=== PATIENT | female | born 1945 | race Caucasian/White ===

== ENCOUNTER 2016-09-23 22:26 | Inpatient (IN) | payer MEDICARE ==
[~2016-09-23] VITALS: Ht 177.8 cm; Wt 124.0 kg
--- NOTE | ~2016-09-23 | US77 ---
[facility] A Service of [facility] RADIOLOGY TEXT RESULTS PATIENT: MAGGI EASON LOCATION: [facility] : 43 UNIT #: [id number] AGE: [address]: SIVAN CONCEPCION V SEX: F ORDER DR: [id number] [facility] [address] [facility]. [place], [place] [address] [id number] I MR#: [id number] Acc #: [id number] NAME: MAGGI EASON : 1945 SEX: F STUDY DATE/TIME: 09/30/2016 18:20 UNIT: [facility] PCU ROOM: [facility] STUDY DESCRIPTION: US Kidney Bilateral Complete Attending Physician: Sivan Concepcion M.D. Ordering Physician: Chi Vidal M.D. Primary Care Physician: Primary Care Physician No MEDICAL IMAGING REPORT This report is preliminary unless electronic signature is present EXAM Renal ultrasound 09/30/2016 HISTORY Acute renal failure since 09/24/2016. Abnormal renal function tests. Elevated BUN of 38, elevated creatinine 1.6. Abnormally low GFR 13.6 today. FINDINGS The right kidney measures 11.4 cm while the left kidney measures 11.7 cm in longitudinal dimensions. There is no evidence of hydronephrosis or nephrolithiasis. No cystic or solid mass lesions were seen on either kidney. There is normal renal cortical echogenicity. The bladder was empty for the exam and therefore poorly visualized. IMPRESSION 1. Negative renal ultrasound. 2. The bladder was empty for the exam and therefore poorly visualized. Dictated by... Clay Rodriguez M.D. THIS IS AN ELECTRONICALLY VERIFIED REPORT Clay Rodriguez M.D. at 10/01/2016 2:14 PM ALIYAH/rhonda TD: 10/01/2016 10:25 JOB #: [id number] MEDICAL IMAGING REPORT [facility] A Service [facility] RADIOLOGY TEXT RESULTS PATIENT: MAGGI EASON LOCATION: [facility] 340 : 43 UNIT #: [id number] AGE: [address]: SIVAN CONCEPCION V SEX: F ORDER DR: Page 1 of 1 COPY
--- NOTE | ~2016-09-23 | DS ---
Unit #: [id number] #: [id number] Patient: MAGGI EASON [id number] [address] [place], [place] [address] [id number] I MR#: [id number] NAME: MAGGI EASON ROOM: 340 Age: 71 Sex: F Admission Date: 09/24/2016 : 1945 Discharge Date: 10/02/2016 Attending Physician: [place] Garcia M.D. Primary Care Physician: No Primary Care Physician DISCHARGE SUMMARY PERTINENT HISTORY AND HOSPITAL COURSE The patient is a 71-year-old woman with a past medical history significant for chronic obstructive pulmonary disease and diabetes mellitus who presented to the hospital with symptoms of shortness of breath and swelling over both her legs along with difficulty walking for the past three days. While at the hospital, she was found to be in acute respiratory failure with CO2 retention, CO2 narcosis and hypoxia. She was started on BiPAP. She was given nebulized bronchodilators and IV glucocorticoids. Her breathing improved, her symptoms improved. She began ambulating independently. She received local wound care to the sacral area for sacral decubitus, treated with diarrhea cream. Also during her admission, she was noted to have a urinary tract infection. She was started empirically on IV Rocephin. Followup urine culture demonstrated E. coli resistant to Rocephin, ESBL. The patient was started on Bactrim which cultures were sensitive. She received four days of Bactrim. However, renal function deteriorated and the Bactrim was discontinued. At the same time, the patient was also noted to have hyponatremia thought possibly secondary to diuretics or Lasix which was initially 40 mg twice daily. It was stopped. Her renal function improved and her sodium improved. She is planning to be restarted on Lasix 40 mg once daily with fluid restriction, and recommend followup BMP to monitor her sodium level and renal function. Following resolution of her respiratory failure, the patient was continued on bronchodilators, Combivent four times a day. She refused to use BiPAP at night. However, the patient's breathing is stable and did not have a recurrence of shortness of breath. At discharge, the patient is currently stable, ambulating independently. Labs today - sodium 130, potassium 4.1, BUN 50, creatinine 1.6, glucose 156. During her admission, her diabetes was well controlled on Levemir 20 units subcu twice daily and NovoLog four units subcu with meals. The patient is being discharged to nursing home facility today. DISCHARGE MEDICATIONS 1. Levemir 20 units subcu twice daily. 2. NovoLog insulin 4 units subcu three times a day with meals. 3. Ferrous gluconate 325 mg p.o. twice daily. 4. Uloric 40 mg p.o. daily. 5. Miconazole 2% powder to affected area over sacrum. 6. Urea 10% topical twice daily to sacral decubitus area. 7. DuoNeb inhaled four times a day. 8. Budesonide 0.5 mg nebulizer twice daily. 9. Tylenol 650 mg p.o. q.6 p.r.n. for pain or fever. 10. Lovenox 40 mg subcu every 24 hours. Unit #: [id number] #: [id number] Patient: MAGGI EASON 11. Lasix 40 mg p.o. once daily. 12. Gabapentin 300 mg p.o. t.i.d. 13. Lexapro 5 mg p.o. daily. 14. Januvia 50 mg p.o. daily. DISCHARGE INSTRUCTIONS Patient to be transferred to nursing home facility. Follow up with pulmonary, Dr. Juan, in two to three weeks. BMP in two days. Monitor sodium and renal function. Dictated by... Kevin Godwin/melany TD: 10/03/2016 12:53 JOB #: [id number] DISCHARGE SUMMARY Page 1 of 1 X X DISCHARGE SUMMARY
--- NOTE | ~2016-09-23 | US84 ---
[id number] [facility] [address] [facility] [address]. [place], [place] [address] [id number] I MR#: [id number] Acc #: [id number] NAME: MAGGI EASON : 1945 SEX: F STUDY DATE/TIME: 09/25/2016 20:17 UNIT: C3A PCU ROOM: 340 STUDY DESCRIPTION: US LE Veins Complete Juan Daniel Stdy Attending Physician: [place] Garcia M.D. Ordering Physician: Ed Sascha [place] M.D. Primary Care Physician: No Primary Care Physician MEDICAL IMAGING REPORT This report is preliminary unless electronic signature is present EXAM Bilateral lower extremity venous ultrasound. HISTORY Bilateral lower extremity swelling, chronic for 3 years. FINDINGS Ultrasound examination of lower extremity veins was performed from the groin to the calf bilaterally. Edema in the lower legs limits evaluation, with nonvisualization of left calf veins and nonvisualization of the right anterior tibial vein. The visualized veins are patent and compressible. IMPRESSION 1. No evidence of DVT or SVT in the lower extremities. 2. Soft tissue edema in the calves limits evaluation of the calf veins with nonvisualization of the left calf veins and nonvisualization of the right anterior tibial vein. Dictated by... Randolph Stubbs M.D. THIS IS AN ELECTRONICALLY VERIFIED REPORT Randolph Stubbs M.D. at 09/26/2016 11:04 PM DFL/roman TD: 09/26/2016 06:12 JOB #: [id number] MEDICAL IMAGING REPORT Page 1 of 1 COPY
--- NOTE | ~2016-09-23 | CO ---
Unit #: [id number] #: [id number] Patient: MAGGI EASON [id number] [place] [id number] [facility]. [place], [place] [address] [id number] I MR#: [id number] NAME: MAGGI EASON ROOM: 340 Age: 71 Sex: F Admission Date: 09/24/2016 : 1945 Attending Physician: [place] Garcia M.D. Primary Care Physician: Primary Care Physician No CONSULTATION REPORT HISTORY OF PRESENT ILLNESS Ms. Eason is a 71-year-old female, who was admitted through the HIP Service. Apparently, according to records, she was brought to [facility] by EMS. She apparently fell at home. She was found lying on the floor complaining of back pain and leg numbness, it have been getting worse over the past couple of days and she was unable to walk, said she had fallen 4 times in the last 2 days. Apparently, she initially refused to go to the hospital and then she was transported to [facility]. She tells me that she had just come to [place] and is living with her son. She has no physician here in this area she says. She says she does see a joint sealer and does have COPD and does smoke. She denied any sleep apnea. Upon arrival, her chest x-ray showed cardiomegaly, low lung volumes, possibly some mild interstitial edema. Arterial blood gases revealed a pH of 7.28, pCO2 of 73, pO2 of 62 on 4 L. Follow up on 21/07 revealed pH 7.30, pCO2 70, PO2 of 79 on 40% oxygen. Chemistries were significant for creatinine of 1.6, BUN of 54, glucose of 185, potassium of 5.2, CO2 of 33. BNP of 52. Lactic acid of 1.1. White blood cell count [place] 99512, hematocrit was 31.6, platelet count was normal. We have been asked to see. Little other history is available from the patient. PAST SURGICAL HISTORY According to hospital records, she has had surgery of cholecystectomy and two knee replacements. PAST MEDICAL HISTORY Significant for CHF, COPD, diabetes, hypertension. HOME MEDICATIONS Listed include Lantus, NovoLog, Spiriva, Ventolin, metoprolol, Protonix, Coreg, potassium chloride, gabapentin, Lexapro, Lasix, pravastatin, Dyazide, verapamil, Tessalon Perles, and Januvia. ALLERGIES Latex, codeine, OxyContin, hydrocodone. REVIEW OF SYSTEMS Not really possible, the patient is difficult to talk through BiPAP mask. FAMILY HISTORY Unknown. SOCIAL HISTORY Apparently, living with her son and moved to [place] 2 days ago. She tells me she smokes cigarettes. No alcohol. Unit #: [id number] #: [id number] Patient: MAGGI EASON Apparently, also in the emergency room, she received Rocephin, Kayexalate, and half an amp of glucose IV. PHYSICAL EXAMINATION GENERAL: Morbidly obese, white female, wearing BiPAP mask. VITAL SIGNS: Blood pressure is 152/69, pulse 94, respiratory rate 28, afebrile. HEENT: Normocephalic and atraumatic. Pupils are equal, round, and reactive. Sclerae nonicteric. Nasal passages patent. Posterior pharynx crowded. NECK: Thick, supple. No cervical or supraclavicular lymphadenopathy. LUNGS: Reveal diminished breath sounds. Occasional rhonchi. CARDIAC: Regular rate and rhythm. Could not appreciate murmur, rub, or gallop. ABDOMEN: Nontender. Bowel sounds present. No hepatosplenomegaly. EXTREMITIES: With 2+ edema and erythema on the shins and lower extremities. DIAGNOSTIC STUDIES CARDIOVASCULAR STUDIES: EKG; sinus rhythm with occasional PVCs, right bundle-branch block, inferior infarct, age undetermined. IMAGING STUDIES: Chest x-ray, as noted. LABORATORY RESULTS: As noted and reviewed. IMPRESSION 1. Acute hypoxemic hypercarbic respiratory failure. 2. Acute on chronic respiratory acidosis. 3. Chronic obstructive pulmonary disease. 4. Probable volume excess possibly some mild congestive heart failure. 5. Renal failure, unsure if this is chronic or acute. 6. Diabetes. 7. Hypertension. 8. Morbid obesity. 9. Probable obstructive sleep apnea and/or obesity hypoventilation syndrome. PLAN I have tried to contact family, but there is no answer. We will adjust BiPAP pressures to maintain adequate oxygenation and ventilation. We will treat with inhaled bronchodilators. We will check echocardiogram to evaluate LV function. Provide diuresis. Recheck lab work and arterial blood gases. We will make further recommendations pending completion of H and P. Dictated by... Kevin Adkins/phuong TD: 09/25/2016 00:51 JOB #: [id number] Unit #: [id number] #: [id number] Patient: MAGGI EASON CONSULTATION REPORT Page 1 of 1 X Delroy Juan MD CONSULTATION REPORT
--- NOTE | ~2016-09-23 | CT71 ---
[facility] A Service of [facility] RADIOLOGY TEXT RESULTS PATIENT: MAGGI EASON LOCATION: [facility] 340-01 : 43 UNIT #: [id number] AGE: [address]: SIVAN CONCEPCION V SEX: F ORDER DR: [id number] [facility] [address] [facility]. [place], [place] [address] [id number] I MR#: [id number] Acc #: [id number] NAME: MAGGI EASON : 1945 SEX: F STUDY DATE/TIME: 09/24/2016 17:04 UNIT: [address] ROOM: [facility] STUDY DESCRIPTION: CT Head Wo Contrast Attending Physician: Sivan Concepcion M.D. Ordering Physician: Radha Chua M.D. Primary Care Physician: No Primary Care Physician MEDICAL IMAGING REPORT This report is preliminary unless electronic signature is present EXAM CT head without contrast 09/24/2016. HISTORY 71-year-old female with head pain status post fall yesterday. COMPARISON None. TECHNIQUE Routine unenhanced axial images performed through the brain. This CT exam was performed with one or more of the following radiation dose reduction techniques: Automatic exposure control, adjustment of mA and/or kV according to patient size, and iterative reconstruction. FINDINGS Examination mildly limited by motion artifact. No hemorrhage, acute infarction, mass lesion, or abnormal extraaxial fluid collection. No midline shift or focal mass effect. Ventricular system normal in size configuration. Mild generalized atrophy. Mild chronic small vessel disease. No acute bony abnormality. Visualized paranasal sinuses and mastoid air cells are clear. IMPRESSION 1. Mildly motion limited exam. No acute intracranial abnormality. 2. Mild age-related atrophy and chronic small vessel disease. Dictated by... Valerio Cota M.D. THIS IS AN ELECTRONICALLY VERIFIED REPORT Valerio Cota M.D. at 09/25/2016 2:38 PM JKB/bd [facility] A Service of [facility] RADIOLOGY TEXT RESULTS PATIENT: MAGGI EASON LOCATION: [facility] 340-01 : 43 UNIT #: [id number] AGE: [address]: SIVAN CONCEPCION V SEX: F ORDER DR: TD: 09/25/2016 06:08 JOB #: [id number] MEDICAL IMAGING REPORT Page 1 of 1 COPY
--- NOTE | ~2016-09-23 | BMI ---
[facility] Nutrition Therapy DATE: 09/24/16 Patient: MAGGI EASON Physician: DEJAN Address: [address] [place] [address] DRIVE Room/Bed: [address] [place] [address], Zip: [place] [address] Admit Date: 09/24/16 Date of : 43 Height: 5 10 Weight: 288 130.63 HIGH BMI NOTE: DX: 71 y/o female admitted with hypoglycemia ANTHROPOMETRICS: Ht: 70", Wt: 130.6 kg, BMI: 41 (stage III obese) DIET: No diet order currently in place, pt just admitted today INTERVENTION: Restricted diet, meds/fluids per MD RECOMMENDATIONS: Once medically feasible advance to healthy heart diet to promote a gradual weight loss towards a healthy BMI range. No H&P currently available. Elevated A1C indicates DM- add consistent carb restriction once hypoglycemia resolves. Respectfully, Elizabeth Solis RD, LD Food and Nutritional Services [facility] cc: client file
--- NOTE | ~2016-09-23 | HP ---
Unit #: [id number] #: [id number] Patient: MAGGI EASON [id number] [place], [place] [address] [id number] I MR#: [id number] NAME: MAGGI EASON ROOM: 340 Age: 71 Sex: F Admission Date: 09/24/2016 : 1945 Attending Physician: Radha Chua M.D. Primary Care Physician: No Primary Care Physician HISTORY AND PHYSICAL HISTORY OF PRESENT ILLNESS The patient is a 71-year-old woman with a past medical history of CHF, COPD and diabetes mellitus who presents with symptoms of shortness of breath, and increased swelling over legs and gait difficulty over the past three days. History from ER listed. Patient unable to provide history due to lethargy. PAST MEDICAL HISTORY CHF. SOCIAL HISTORY Nonsmoker. Does not drink alcohol. ALLERGIES No known drug allergies. REVIEW OF SYSTEMS History per HPI. Patient unable to provide the review of system history due to lethargy. HOME MEDICATIONS Gabapentin 300 mg p.o. t.i.d.; Lexapro 5 mg p.o. daily; Lasix 40 mg p.o. b.i.d.; Pravastatin 40 mg at bedtime; Dyazide 1 tablet daily; Verapamil 80 mg 3 times a day; Tessalon Perles 100 mg twice daily; Januvia 50 mg daily; Lantus 40 units subcu twice daily; NovoLog 42 units subcu 3 times daily; Ventolin one puff daily; metoprolol 25 mg twice daily; Protonix 40 mg daily; Coreg 3.125 mg p.o. twice daily; potassium chloride 20 mEq p.o. daily. PHYSICAL EXAMINATION VITAL SIGNS: Temperature 97.8, blood pressure 152/69, heart rate 90 per minute. GENERAL: The patient is morbidly obese, lethargic. HEENT: Oropharynx clear. NECK: Trachea midline, supple, no adenopathy. CARDIAC: Regular rate and rhythm LUNGS: Bilateral air entry, scattered rhonchi. EXTREMITIES: Positive for dependent edema. No cyanosis. SKIN: Positive for decubitus ulcer over sacrum. DIAGNOSTIC STUDIES LABORATORY STUDIES: Sodium 137, potassium 5.2, BUN 54, creatinine 1.6, initial blood glucose 45, improved to 185 after starting D5 normal. Urinalysis positive for WBC and positive for leukocyte esterase. ABG - pH Unit #: [id number] #: [id number] Patient: MAGGI EASON 7.28, pCO2 73, O2 sat 88%, ASSESSMENT AND PLAN 1. Acute exacerbation of chronic obstructive pulmonary disease with CO2 narcosis, CO2 retention and hypoxia with respiratory failure. Plan is to start patient on BiPAP with followup repeat ABG. Order a pulmonary consultation. Order azithromycin. 2. Urinary tract infection. Plan is to order Rocephin. Followup urine culture. 3. Decubitus ulcer. Plan is to order wound care. 4. Diabetes mellitus with hypoglycemia. Plan is to continue D5 normal saline. Monitor blood glucose. Reduce dose of Lantus due to initial hypoglycemia over sliding scale insulin coverage. Dictated by Kevin Godwin TD: 09/24/2016 10:19 JOB #: [id number] HISTORY AND PHYSICAL Page 1 of 1 X X HISTORY AND PHYSICAL
--- NOTE | ~2016-09-23 | CO ---
Unit #: [id number] #: [id number] Patient: EVELYNE EASON [id number] [address] [place], [place] [address] [id number] I MR#: [id number] NAME: EVELYNE EASON ROOM: 340 Age: 71 Sex: F Admission Date: 09/24/2016 : 1945 Attending Physician: [place] Garcia M.D. Primary Care Physician: No Primary Care Physician Consultation Date: 09/30/2016 CONSULTATION REPORT REASON FOR CONSULT Renal insufficiency. Thank you for asking me to see this patient in consultation. Ms. Evelyne Eason, who is a 71-year-old female who just recently moved here prior to her presentation on 09/24/16 where she came in with increased swelling, weakness, falling at home a few times, noted upon presentation to have a creatinine of 1.6 on 09/23. It did improve down to 1.1 on 09/26. It was repeated yesterday but creatinine was up to 1.5 and up to 1.6 today. Also noted to have sodium down to 128. Because of this, I was asked to see the patient. Since admission, the patient was noted to have a decubitus ulcer, had questionable cellulitis of the lower extremities and an E. coli ESBL UTI and was placed on Bactrim and has been on Bactrim since the . The patient was supposed to go to rehab although never did. She states she has never had any problems with her kidneys that she knows of. She does state two Aleve a day prior to presentation but none since here. PAST MEDICAL HISTORY 1. History of diabetes mellitus. 2. History of diastolic congestive heart failure. 3. History of COPD, status post knee surgery. 4. Status post cholecystectomy. SOCIAL HISTORY She is a previous smoker, none in the last four years. Again, just moved to [place]. She denies any alcohol abuse. ALLERGIES Codeine, oxycodone, hydrocodone and latex. FAMILY HISTORY Noncontributory. REVIEW OF SYSTEMS She states the shortness of breath is improved although still with some exertion. She denies any severe headaches, dizziness, visual problems, sinus problems. No hemoptysis. No neck pain or neck stiffness. No chest pain or chest heaviness or palpitations. No severe abdominal pain. No nausea, vomiting, diarrhea. She still has a Neal catheter in. She has some intermittent swelling but she states it is better. She denies any recent seizures or strokes. Unit #: [id number] #: [id number] Patient: EVELYNE EASON PHYSICAL EXAMINATION GENERAL: She is alert and oriented. VITAL SIGNS: Temperature is 99.4, pulse 88-106, blood pressure 110-154/40s-80s. HEENT: She is normocephalic, atraumatic. Pupils are equal, round, reactive to light. Extraocular muscles are intact. Hearing appears to be normal. Her mouth is clear. No erythema, no exudates. NECK: Supple, no adenopathy. CARDIAC: She appears to have a regular rhythm without a rub. Maybe a 1 to 2/6 systolic ejection murmur. LUNGS: Decreased breath sounds at the bases only. She has a few expiratory wheezes, no rales or rhonchi noted. She is obese. Bowel sounds are nontender, soft. EXTREMITIES: Her lower legs are dressed. They are large although skin is wrinkling like she had good diuresis. NEURO: Appears to be grossly intact. : Neal catheter is in place. DIAGNOSTIC STUDIES LABORATORY: Laboratory today shows sodium of 128, potassium 3.7, chloride is 86, bicarb is 33, BUN of 38, creatinine 1.6 with a glucose of 153, calcium is 8.9, hemoglobin is 8.5, white count 8400, platelets 293,000. Her T saturation upon admission was 6. She was started on oral iron. Her UA on 09/23 showed specific gravity 1.02, no protein, 0-2 RBCs, 5-10 WBCs, 2+ bacteria and, again, the ESBL E. coli. CARDIOVASCULAR: She had an echo here that showed an EF of 55%. She had a negative lower extremity Doppler. Negative CT of the head. Initial chest x-ray showed some potential mild failure. MEDICATIONS She is on: 1. Insulin. 2. Lovenox. 3. Iron. 4. Inhalers. 5. She was on Bactrim, one p.o. b.i.d. which was stopped today. 6. She was also continued on Lasix 40 mg IV b.i.d. which was DC'd today as well. ASSESSMENT AND PLAN 1. Acute renal insufficiency: Again, patient had acute renal insufficiency when she came in. Creatinine did improve down to 1.1 and it is back up again. Certainly, her initial urinalysis showed no active urinary sediment with no hematuria or proteinuria. Her worsening creatinine again now may be related to diuresis. She has been on the Lasix IV twice a day. Also, on top of that, could be related to the Bactrim versus other. Would like to check a repeat urinalysis with culture and sensitivity, check urine eosinophils without acute interstitial nephritis, check random urine sodium as well as check a renal ultrasound. Agree with stopping her Lasix and Bactrim for now. Will check a full set of electrolytes in the morning including an ALBA. Depending on what all this shows, seeing what renal function does, depending on what further workup and treatment. 2. Hyponatremia: Patient with low sodium. Unsure of the exact etiology. It could just be from overdiuresis versus other. Will Unit #: [id number] #: [id number] Patient: EVELYNE EASON check a cortisol level and a TSH in the morning, check a urine osmolality as well as again repeat urine sodium and also check a uric acid in a.m. Certainly she could have an SIADH related to her lungs versus other. 3. ESBL UTI, treated with Bactrim: This has been DC'd now. Will repeat culture. 4. COPD, questionable obstructive sleep apnea. 5. Diabetes mellitus. Dictated by.Desirae Vidal M.D. FRITZ/melany TD: 10/01/2016 11:20 JOB #: [id number] CONSULTATION REPORT Page 1 of 1 X Beth Vidal MD X CONSULTATION REPORT
--- NOTE | ~2016-09-23 | DS ---
Unit #: [id number] #: [id number] Patient: MAGGI EASON [id number] [address] [place], [place] [address] [id number] I MR#: [id number] NAME: MAGGI EASON ROOM: 340 Age: 71 Sex: F Admission Date: 09/24/2016 : 1945 Discharge Date: Attending Physician: Hugo Garcia DISCHARGE SUMMARY PERTINENT HISTORY AND HOSPITAL COURSE The patient is a 71-year-old woman with a past medical history of CHF, COPD, and diabetes mellitus, who presented to the hospital with symptoms of shortness of breath and swelling over legs along with difficulty walking over the past 3 days. While at the hospital, she was found to be in acute respiratory failure with CO2 retention, CO2 narcosis, and hypoxia. She was started on BiPAP. She was given nebulized bronchodilators and IV glucocorticoids. Her breathing improved. Following which, her symptoms improved. Also, during her admission, the patient was started on Rocephin for urinary tract infection. Urine cultures grew back E. coli with extended-spectrum beta-lactamase; resistant to ceftriaxone. Her antibiotic was changed to Bactrim. She remained afebrile and she will be continued on Bactrim for another 4 days. Also, during her admission, she was noted to have sacral decubitus, which was managed by wound care and Desitin cream. The patient also presented with hypoglycemia. Her insulin dosage was reduced, and following which, she no longer had episodes of hypoglycemia. The patient is being planned to be discharged to intermediate facility for continued rehabilitation. DISCHARGE MEDICATIONS Include DuoNeb q.i.d. and as needed; Asmanex one inhalation b.i.d.; Lovenox 40 mg subcutaneously once daily; gabapentin 100 mg p.o. t.i.d.; Lexapro 5 mg daily; Januvia 50 mg daily; metoprolol succinate sustained release 25 mg p.o. once daily; furosemide 40 mg p.o. b.i.d.; urea 10% topical cream to apply to affected area; pravastatin 40 mg p.o. at bedtime; Protonix 40 mg p.o. daily; potassium chloride 10 mEq p.o. daily; Levemir insulin 10 units subcutaneously b.i.d.; low-dose NovoLog sliding scale insulin coverage before meals; ferrous sulfate 325 mg p.o. b.i.d.; Desenex topical powder b.i.d.; Bactrim 800/160 mg tab one p.o. b.i.d. for 4 days. DISCHARGE INSTRUCTIONS The patient is to be transferred to intermediate facility for rehabilitation. Discharge followup with lab asst, Dr. German Juan for pulmonary function tests. Recommend followup with lab asst in 2 to 3 weeks. Dictated by... Hugo More for Felix Bernard M.D. AM/phuong Unit #: [id number] #: [id number] Patient: MAGGI EASON TD: 09/30/2016 02:13 JOB #: [id number] DISCHARGE SUMMARY Page 1 of 1 X X DISCHARGE SUMMARY
--- NOTE | ~2016-09-23 | CR72 ---
[facility]. [facility] A Service of [facility] RADIOLOGY TEXT RESULTS PATIENT: MAGGI EASON LOCATION: [facility] 340-01 : 43 UNIT #: [id number] AGE: [address]: JEREMY CONCEPCIONUJ V SEX: F ORDER DR: [id number] [place] [id number] I MR#: [id number] Acc #: [id number] NAME: MAGGI EASON : 1945 SEX: F STUDY DATE/TIME: 09/23/2016 23:28 UNIT: SEDOF ROOM: [facility] STUDY DESCRIPTION: CR Chest Single View Portable Attending Physician: Radha Chua M.D. Ordering Physician: Santy Delong M.D. Primary Care Physician: No Primary Care Physician MEDICAL IMAGING REPORT This report is preliminary unless electronic signature is present. EXAM Portable chest. INDICATIONS Shortness of air after a fall today. PROCEDURE Frontal view of the chest. COMPARISON None. FINDINGS Cardiomegaly and moderate central pulmonary vascular prominence. No dense consolidation or pneumothorax. IMPRESSION Cardiomegaly and moderate central vascular prominence. No dense consolidation. Dictated by... Tamir Tripp M.D. THIS IS AN ELECTRONICALLY VERIFIED REPORT Tamir Tripp M.D. at 09/24/2016 9:53 PM EED/roman TD: 09/24/2016 13:29 JOB #: [id number] MEDICAL IMAGING REPORT Page 1 of 1
--- NOTE | ~2016-09-23 | CT98 ---
[facility] A Service of [facility] RADIOLOGY TEXT RESULTS PATIENT: MAGGI EASON LOCATION: [facility] : 43 UNIT #: [id number] AGE: [address]: SIVAN CONCEPCION V SEX: F ORDER DR: [id number] [facility] [address] [facility] [place], [place] [address] [id number] MR#: [id number] Acc #: [id number] NAME: MAGGI EASON : 1945 SEX: F STUDY DATE/TIME: 09/24/2016 17:07 [facility] ROOM: [facility] STUDY DESCRIPTION: CT Lumbar Spine Wo Cont Attending Physician: Sivan Concepcion M.D. Ordering Physician: Radha Chua M.D. Primary Care Physician: Primary Care Physician No MEDICAL IMAGING REPORT This report is preliminary unless electronic signature is present EXAM CT lumbar spine without contrast INDICATION Lower back pain for the past 2 days after a fall yesterday. Large decubitus ulcer on the buttock. PROCEDURE Unenhanced CT of the lumbar spine. This CT exam was performed with one or more of the following radiation dose reduction techniques: automatic exposure control, adjustment of mA and/or kV according to patient size, and iterative reconstruction. COMPARISON None FINDINGS Lumbar bodies maintain normal alignment. There is megt-mr-sfupxaek multilevel degenerative change. Kyphoplasty changes at L1. There is mild age indeterminate but probably chronic, superior endplate compression at L4. Multilevel degenerative facet change. No aggressive appearing bone lesion. There is significant central canal narrowing at L3-L4 related to circumferential disc osteophyte and facet change. There is also significant central canal narrowing at L4-L5 related to circumferential disc osteophyte and facet change. There is severe bilateral neural foraminal narrowing at L4-L5. No abnormal paravertebral mass. 3.3 cm benign left adrenal adenoma. Posterior opacities in both included lung bases nonspecific, probably atelectasis. [facility] A Service of [facility] RADIOLOGY TEXT RESULTS PATIENT: MAGGI EASON LOCATION: [facility] 340-01 : 43 UNIT #: [id number] AGE: [address]: SIVAN CONCEPCION V SEX: F ORDER DR: IMPRESSION 1. No definite acute findings. 2. Mild superior endplate compression at L4 is age indeterminate but probably chronic. 3. Multilevel degenerative disc disease and facet arthrosis with significant central canal narrowing at L3-L4 and L4-L5 as well as significant bilateral neural foraminal narrowing at L4-L5. 4. Other findings are detailed above. Dictated by... Tamir Tripp M.D. THIS IS AN ELECTRONICALLY VERIFIED REPORT Tamir Tripp M.D. at 09/25/2016 10:00 PM Fernanda TD: 09/25/2016 08:33 JOB #: [id number] MEDICAL IMAGING REPORT Page 1 of 1 COPY
[2016-09-23 22:49] LABS: BASOPHIL# 0.1 X10e3 (0-0.3); BASOPHIL% 0.7 % (0-2.5); EOSINOPHIL# 0.2 X10e3 (0-0.7); EOSINOPHIL% 2.3 % (0.0-7.0); HEMATOCRIT 29.4 % (35.0-45.0); HEMOGLOBIN 9.6 gm/dL (12.0-16.0); LYMPHOCYTE# 1.2 X10e3 (1.0-3.5); LYMPHOCYTE% 11.5 % (17.0-45.0); MEAN CELL VOLUME 86.5 FL (83-96); MEAN CORPUSCULAR HEMOGLOBIN 28.4 PG (28-34); MEAN CORPUSCULAR HGB CONC 32.8 g/dL (30-36); MEAN PLATELET VOLUME 6.7 FL (6.5-11.5); MONOCYTE# 0.8 X10e3 (0-1.0); MONOCYTE% 7.4 % (3.0-12.0); NEUTROPHIL% 78.1 % (40-75); PLATELET COUNT 297 X10e3 (140-420); RED CELL DISTRIBUTION WIDTH 20.6 % (11.0-15.5); WHITE BLOOD COUNT 10.2 X10e3 (4.0-10.5)
[2016-09-23 22:54] LABS: DIFF IND NO
[2016-09-23] MEDS ORDERED: INHALER (22:56)
[2016-09-23] MEDS ORDERED: INSULIN (22:56)
[2016-09-23] MEDS ORDERED: WATER PILL (22:56)
[2016-09-23 23:09] LABS: ALBUMIN SERUM 3.6 g/dL (3.5-5.0); ALKALINE PHOSPHATASE 98 U/L (32-92); ALT (SGPT) 25 U/L (10-40); AST (SGOT) 19 U/L (10-42); BILIRUBIN,TOTAL 0.5 mg/dL (0.2-2.0); BLOOD UREA NITROGEN 58 mg/dL (9-23); BUN/CREATININE RATIO 36.25; CALCIUM SERUM 8.9 mg/dL (8.4-10.2); CARBON DIOXIDE 32 mmol/L (22-31); CHLORIDE 95 mmol/L (100-111); CREATININE SERUM 1.6 mg/dL (0.6-1.4); GLOM FILT RATE Estimated 31.6 mL/min (>60); LIPASE 28 U/L (22-51); POTASSIUM 5.4 mmol/L (3.5-5.1); PROTEIN TOTAL SERUM 7.6 g/dL (6.0-8.3); SODIUM 134 mmol/L (135-145)
[2016-09-23 23:10] LABS: BILIRUBIN, DIRECT <0.1 mg/dL (0.0-0.2); BILIRUBIN,INDIRECT 0.4 mg/dL (0.0-0.9); GLUCOSE FASTING 45 mg/dL (70-110)
[2016-09-23] MEDS ORDERED: LANTUS100 U/ML SUBQ (23:43)
[2016-09-23] MEDS ORDERED: NOVOLOG100 UNIT/1 SUBQ (23:44)
[2016-09-23] MEDS ORDERED: SPIRIVA18 MCG (23:44)
[2016-09-23] MEDS ORDERED: ALBUTEROL17 GM INH (23:45)
[2016-09-23] MEDS ORDERED: METOPROLOL SUCC25 MG PO (23:45)
[2016-09-23] MEDS ORDERED: PANTOPRAZOLE SO40 MG PO (23:45)
[2016-09-23] MEDS ORDERED: COREG3.125 MG PO (23:45)
[2016-09-23] MEDS ORDERED: POTASSIUM CHLO20 ME1 PO (23:46)
[2016-09-23] MEDS ORDERED: GABAPENTIN300 M2 PO (23:46)
[2016-09-23] MEDS ORDERED: LASIX PO (23:47)
[2016-09-23] MEDS ORDERED: LEXAPRO5 MG PO (23:47)
[2016-09-23] MEDS ORDERED: PRAVASTATIN SOD40 MG PO (23:47)
[2016-09-23] MEDS ORDERED: VERAPAMIL HCL80 MG PO (23:48)
[2016-09-23] MEDS ORDERED: DYAZIDE 371 CAP 37.5 PO (23:48)
[2016-09-23] MEDS ORDERED: TESSALON PERLE100 M1 PO (23:49)
[2016-09-23] MEDS ORDERED: JANUVIA50 MG PO (23:49)
[2016-09-24 01:32] LABS: URINE SOURCE CLEAN CATCH
[2016-09-24 01:34] LABS: URINE APPEARANCE CLEAR; URINE BILIRUBIN NEG (NEG); URINE BLOOD NEG (NEG); URINE COLOR YELLOW; URINE GLUCOSE NEG (NORM); URINE KETONE NEG (NEG); URINE LEUKOCYTE ESTERASE 1+ (NEG); URINE NITRATE POS (NEG); URINE PH 5.5 (5-8); URINE PROTEIN NEG (NEG); URINE UROBILINOGEN 0.2 MG/DL (NORM)
[2016-09-24 01:35] LABS: MICRO INDICATED? YES
[2016-09-24 01:39] LABS: CULTURE INDICATED? YES; URINE BACTERIA 2+ (NEG); URINE RBC 0-2 /[HPF] (0-2); URINE SQUAMOUS EPITHELIAL CELL FEW /[HPF]
[2016-09-24 07:29] LABS: ARTERIAL BLD GAS O2 SATURATION 88.2 % (90.0-100.0); ARTERIAL BLOOD GAS MET HB 0.8 %sat (0.0-2.0); ARTERIAL BLOOD GAS pH 7.287 (7.350-7.450)
[2016-09-24 07:34] LABS: ARTERIAL BLOOD GAS ALLEN TEST NORMAL; ARTERIAL BLOOD GAS ART SITE LEFT RADIAL; ARTERIAL BLOOD GAS DELIVERY NASAL CANNULA; ARTERIAL BLOOD GAS PCO2 73.4 mmHg (35.0-45.0); ARTERIAL BLOOD GAS PO2 62.4 mmHg (80.0-100); ARTERIAL DRAW? YES
[2016-09-24 08:27] LABS: HEMATOCRIT 31.6 % (35.0-45.0); HEMOGLOBIN 9.9 gm/dL (12.0-16.0); MEAN CELL VOLUME 87.8 FL (83-96); MEAN CORPUSCULAR HEMOGLOBIN 27.7 PG (28-34); MEAN CORPUSCULAR HGB CONC 31.5 g/dL (30-36); MEAN PLATELET VOLUME 7.1 FL (6.5-11.5); RED BLOOD COUNT 3.6 X10e (3.90-5.30); RED CELL DISTRIBUTION WIDTH 20.8 % (11.0-15.5); WHITE BLOOD COUNT 10.1 X10e3 (4.0-10.5)
[2016-09-24 08:59] LABS: BUN/CREATININE RATIO 33.75; CREATININE SERUM 1.6 mg/dL (0.6-1.4); GLOM FILT RATE Estimated 31.6 mL/min (>60); POTASSIUM 5.2 mmol/L (3.5-5.1)
[2016-09-24 10:30] LABS: ARTERIAL BLD GAS O2 SATURATION 93.5 % (90.0-100.0); ARTERIAL BLOOD GAS CARBOXY HB 1.9 %sat (0.0-9.0); ARTERIAL BLOOD GAS HCO3 35.1 mmol/L; ARTERIAL BLOOD GAS MET HB 0.8 %sat (0.0-2.0); ARTERIAL BLOOD GAS pH 7.307 (7.350-7.450)
[2016-09-24 10:39] LABS: ARTERIAL BLOOD GAS ALLEN TEST NORMAL; ARTERIAL BLOOD GAS ART SITE RIGHT RADIAL; ARTERIAL BLOOD GAS DELIVERY BIPAP; ARTERIAL BLOOD GAS PCO2 70.3 mmHg (35.0-45.0); ARTERIAL BLOOD GAS PO2 79.3 mmHg (80.0-100); ARTERIAL DRAW? YES
[2016-09-24 13:45] LABS: ARTERIAL BLD GAS O2 SATURATION 90.7 % (90.0-100.0); ARTERIAL BLOOD GAS CARBOXY HB 1.9 %sat (0.0-9.0); ARTERIAL BLOOD GAS HCO3 35.6 mmol/L; ARTERIAL BLOOD GAS MET HB 0.7 %sat (0.0-2.0); ARTERIAL BLOOD GAS pH 7.339 (7.350-7.450)
[2016-09-24 13:47] LABS: ARTERIAL BLOOD GAS ALLEN TEST NORMAL; ARTERIAL BLOOD GAS ART SITE LEFT RADIAL; ARTERIAL BLOOD GAS DELIVERY BIPAP; ARTERIAL BLOOD GAS PCO2 66.2 mmHg (35.0-45.0); ARTERIAL BLOOD GAS PO2 66.6 mmHg (80.0-100); ARTERIAL DRAW? YES
[2016-09-25 05:01] LABS: ARTERIAL BLOOD GAS CARBOXY HB 1.1 %sat (0.0-9.0); ARTERIAL BLOOD GAS HCO3 37.9 mmol/L; ARTERIAL BLOOD GAS MET HB 0.4 %sat (0.0-2.0); ARTERIAL BLOOD GAS pH 7.392 (7.350-7.450)
[2016-09-25 05:04] LABS: ARTERIAL BLOOD GAS ALLEN TEST NORMAL; ARTERIAL BLOOD GAS ART SITE LEFT RADIAL; ARTERIAL BLOOD GAS DELIVERY BIPAP 18/5 R18; ARTERIAL BLOOD GAS PCO2 62.3 mmHg (35.0-45.0); ARTERIAL DRAW? YES
[2016-09-25 07:30] LABS: HEMATOCRIT 26.6 % (35.0-45.0); HEMOGLOBIN 8.6 gm/dL (12.0-16.0); MEAN CELL VOLUME 87.5 FL (83-96); MEAN CORPUSCULAR HEMOGLOBIN 28.3 PG (28-34); MEAN CORPUSCULAR HGB CONC 32.4 g/dL (30-36); MEAN PLATELET VOLUME 7.2 FL (6.5-11.5); RED BLOOD COUNT 3.04 X10e (3.90-5.30); RED CELL DISTRIBUTION WIDTH 20.7 % (11.0-15.5); WHITE BLOOD COUNT 9.5 X10e3 (4.0-10.5)
[2016-09-25 07:48] LABS: BUN/CREATININE RATIO 30.76; CALCIUM SERUM 8.7 mg/dL (8.4-10.2); CREATININE SERUM 1.3 mg/dL (0.6-1.4); GLOM FILT RATE Estimated 40.7 mL/min (>60)
[2016-09-26 05:36] LABS: HEMATOCRIT 27.6 % (35.0-45.0); MEAN CELL VOLUME 86.3 FL (83-96); MEAN CORPUSCULAR HGB CONC 32.5 g/dL (30-36); MEAN PLATELET VOLUME 6.9 FL (6.5-11.5); RED BLOOD COUNT 3.2 X10e (3.90-5.30); WHITE BLOOD COUNT 9.2 X10e3 (4.0-10.5)
[2016-09-26 06:38] LABS: BUN/CREATININE RATIO 33.63; CALCIUM SERUM 8.8 mg/dL (8.4-10.2); CREATININE SERUM 1.1 mg/dL (0.6-1.4); GLOM FILT RATE Estimated 49.8 mL/min (>60); POTASSIUM 3.8 mmol/L (3.5-5.1)
[2016-09-29 06:58] LABS: BUN/CREATININE RATIO 22.66; CALCIUM SERUM 8.5 mg/dL (8.4-10.2); CREATININE SERUM 1.5 mg/dL (0.6-1.4); GLOM FILT RATE Estimated 34.2 mL/min (>60); POTASSIUM 3.7 mmol/L (3.5-5.1)
[2016-09-30 07:47] LABS: HEMATOCRIT 26.7 % (35.0-45.0); HEMOGLOBIN 8.5 gm/dL (12.0-16.0); MEAN CELL VOLUME 85.4 FL (83-96); MEAN CORPUSCULAR HEMOGLOBIN 27.4 PG (28-34); MEAN PLATELET VOLUME 6.7 FL (6.5-11.5); RED BLOOD COUNT 3.12 X10e (3.90-5.30); RED CELL DISTRIBUTION WIDTH 20.3 % (11.0-15.5); WHITE BLOOD COUNT 8.4 X10e3 (4.0-10.5)
[2016-09-30 08:15] LABS: BUN/CREATININE RATIO 23.75; CALCIUM SERUM 8.9 mg/dL (8.4-10.2); CREATININE SERUM 1.6 mg/dL (0.6-1.4); GLOM FILT RATE Estimated 31.6 mL/min (>60); POTASSIUM 3.7 mmol/L (3.5-5.1)
[2016-10-01 06:50] LABS: URINE APPEARANCE CLEAR; URINE BILIRUBIN NEG (NEG); URINE BLOOD NEG (NEG); URINE COLOR YELLOW; URINE GLUCOSE NEG (NEG); URINE KETONE NEG (NEG); URINE LEUKOCYTE ESTERASE TRACE (NEG); URINE NITRATE NEG (NEG); URINE PROTEIN NEG (NEG); URINE UROBILINOGEN 0.2 MG/DL (NEG)
[2016-10-01 06:52] LABS: U HYALINE CASTS AUWI 0-2 /[LPF]; URINE BACTERIA AUWI NEG (NEGATIVE); URINE SQUAMOUS EPITHELIAL CELL NONE SEEN /[HPF]; UWBCS1 AUWI 0-2 (0-5)
[2016-10-01 07:27] LABS: POTASSIUM,URINE RANDOM 25 mmol/L; SODIUM URINE RANDOM 37 mmol/L
[2016-10-01 07:36] LABS: OSMOLALITY,URINE 400 mOsmo/kg (250-900)
[2016-10-01 08:18] LABS: HEMATOCRIT 26.1 % (35.0-45.0); HEMOGLOBIN 8.8 gm/dL (12.0-16.0); MEAN CELL VOLUME 84.6 FL (83-96); MEAN CORPUSCULAR HEMOGLOBIN 28.4 PG (28-34); MEAN CORPUSCULAR HGB CONC 33.6 g/dL (30-36); MEAN PLATELET VOLUME 6.7 FL (6.5-11.5); RED BLOOD COUNT 3.09 X10e (3.90-5.30); RED CELL DISTRIBUTION WIDTH 19.8 % (11.0-15.5); WHITE BLOOD COUNT 8.7 X10e3 (4.0-10.5)
[2016-10-01 08:54] LABS: THYROID STIMULATING HORMONE 2.3 uIU/ml (0.34-5.60)
[2016-10-01 09:08] LABS: BILIRUBIN,TOTAL 0.1 mg/dL (0.2-2.0); BUN/CREATININE RATIO 26.47; CALCIUM SERUM 9.1 mg/dL (8.4-10.2); CREATININE SERUM 1.7 mg/dL (0.6-1.4); GLOM FILT RATE Estimated 29.4 mL/min (>60); MAGNESIUM 1.8 mg/dL (1.6-3.0); PHOSPHOROUS 3.4 mg/dL (2.5-4.6); PROTEIN TOTAL SERUM 7.5 g/dL (6.0-8.3)
[2016-10-01 09:14] LABS: URIC ACID 14.6 mg/dL (2.6-7.2)
[2016-10-02 09:44] LABS: BUN/CREATININE RATIO 31.25; CALCIUM SERUM 8.7 mg/dL (8.4-10.2); CREATININE SERUM 1.6 mg/dL (0.6-1.4); GLOM FILT RATE Estimated 31.6 mL/min (>60); POTASSIUM 4.1 mmol/L (3.5-5.1)
== END 2016-10-02 19:34 | DRG 189 ==
LOC: SED 22:26 → SEDOF 09-24 03:04 → CEDOF 09-24 03:04 → SED 09-24 03:04 → SEDOF 09-24 03:18 → CEDOF 09-24 03:18 → SEDOF 09-24 05:40 → CEDOF 09-24 05:40 → C3A PCU 09-24 05:40 → SEDOF 09-24 06:56 → C3A PCU 09-24 15:00
PROVIDERS: Emergency Medicine; Internal Medicine; Internal Medicine Endocrinology, Diabetes & Metabolism; Internal Medicine Nephrology; Psychiatry & Neurology Behavioral Neurology & Neuropsychiatry
PROC: B24BYZZ Ultrasonography of Heart with Aorta using Other Contrast (ICD-10-PCS; principal; 2016-09-24)
DX: J96.01 Acute respiratory failure with hypoxia (principal); N17.9 Acute kidney failure, unspecified; L89.152 Pressure ulcer of sacral region, stage 2; E87.2 Acidosis; E11.649 Type 2 diabetes mellitus with hypoglycemia without coma; I11.0 Hypertensive heart disease with heart failure; L89.159 Pressure ulcer of sacral region, unspecified stage; I50.32 Chronic diastolic (congestive) heart failure; L03.115 Cellulitis of right lower limb; J44.1 Chronic obstructive pulmonary disease with (acute) exacerbation; N39.0 Urinary tract infection, site not specified; L03.116 Cellulitis of left lower limb; E87.1 Hypo-osmolality and hyponatremia; Z68.41 Body mass index [BMI] 40.0-44.9, adult; J96.02 Acute respiratory failure with hypercapnia; Z90.49 Acquired absence of other specified parts of digestive tract; Z79.4 Long term (current) use of insulin; Z91.040 Latex allergy status; B96.20 Unspecified Escherichia coli [E. coli] as the cause of diseases classified elsewhere; W18.30XA Fall on same level, unspecified, initial encounter; M54.9 Dorsalgia, unspecified; D50.9 Iron deficiency anemia, unspecified; E66.01 Morbid (severe) obesity due to excess calories
CPT/HCPCS: 36415; 36600; 70450; 71010; 72131; 76770; 80048; 80053; 80076; 81003; 82274; 82310; 82436; 82533; 82728; 82803; 82947; 83036; 83540; 83550; 83605; 83690; 83735; 83880; 83930; 83935; 84100; 84133; 84300; 84443; 84550; 85025; 85027; 86334; 87040; 87086; 87088; 87186; 89190; 93306; 93970; 94640; 94660; 94664; 94760; 96374; 97163; 97166; 99285; G8978-GP; G8979-GP; G8980-GP; G8987-GO; G8988-GO; G8989-GO; J0456; J0696; J1650; J1815; J1940; J3370